=== PATIENT | female | born 1990 | race Two or more races ===

== ENCOUNTER → 2020-10-07 | Outpatient (CLI) | payer OTHER ==
[~2020-10-07] MED LIST: LIDOCAINE 1% MDV 20ML VIAL As Ordered ONE
[2020-10-07 14:35] VITALS: BP 117/68
--- NOTE | 2020-10-07 18:04 | REP ---
PROCEDURE NAME: PICC LINE INSERTION W/SITERITE CLINICAL INFORMATION: PIC LINE INSERTION - IN CT HOLDING AREA. COMPARISON: None. PROCEDURE DESCRIPTION: The procedure was performed by KAYLEE Alcantar, under the direct supervision of Dr. Montano. The risks and benefits of the procedure were explained to the patient and an informed consent was obtained both verbally and written. Directly prior to the start of the procedure a formal time-out was completed in the procedure room. The left basilic vein was localized using ultrasound guidance. The skin was prepped and draped in sterile fashion. Two mL of 1% lidocaine 10 mg/mL was used as a local anesthetic. Using ultrasound guidance the left basilic vein was cannulated, and a 0.018 guidewire was inserted and advanced to the level of SVC using fluoroscopic guidance. The needle was removed and a 4.5 [place]grin dilator and peel-away sheath was inserted over the guidewire. A 4.5 [place]in single lumen catheter was cut to a length of 40 cm. The dilator was removed and the catheter was inserted over the guidewire with the tip ending at the level of the SVC. The peel-away sheath was removed and the catheter was flushed with heparinized saline as per hospital protocol. The catheter was affixed to the skin and a sterile dressing was applied. The patient tolerated the procedure well and there were no immediate complications. CONCLUSION: PICC line insertion into the left basilic vein. 0.1 minutes of fluoroscopy time was utilized for this procedure. Some fluoroscopic images are performed with last image hold technology. These images require no additional radiation. <Electronically signed by Vidhi Velasquez > 10/07/20 1630 <Electronically signed by Ryne Montano > 10/07/20 1800
== END ==
LOC: M IRPRO 14:41
PROVIDERS: ATTEND Nurse Practitioner Family
DX: J18.9 Pneumonia, unspecified organism (principal)
CPT/HCPCS: 36571; 76937; C1751; J1642; J1644